=== PATIENT | female | born 1995 | race American Indian/Alaskan Native ===

== ENCOUNTER 2019-01-19 04:24 | Emergency (ER) | payer SELFPAY ==
[2019-01-19 05:20] LABS: Basophils % (Auto) 0.4 % (0.0-1.8); Eosinophils # (Auto) 0.1 K/mm3 (0.0-0.4); Eosinophils % (Auto) 1.1 % (0.0-4.3); Hematocrit 41.2 % (30.3-42.9); Hemoglobin 13.6 gm/dl (10.1-14.3); Lymphocytes # (Auto) 2.2 K/mm3 (1.2-5.4); Lymphocytes % (Auto) 32.8 % (13.4-35.0); Mean Corpuscular HGB Conc 33 % (30-34); Mean Corpuscular Volume 95 fl (79-97); Monocytes # (Auto) 0.5 K/mm3 (0.0-0.8); Monocytes % (Auto) 7.6 % (0.0-7.3); Platelet Count 208 K/mm3 (140-440); Red Blood Count 4.34 M/mm3 (3.65-5.03)
[2019-01-19 05:30] LABS: Bilirubin,Urine NEG (Negative); Blood,Urine MOD (Negative); Color,Urine Yellow (Yellow); Mucus,Urine 2+ /HPF; Urobilinogen,Urine < 2.0 mg/dL (<2.0)
[2019-01-19] MEDS ORDERED: LIDOCAINE-MPF (1%) 10 MG/1 ML VIAL 5 ML INFILTRATI ONE (05:59)
[2019-01-19] MEDS ORDERED: AZITHROMYCIN 1 GM ORAL PWDR PACKET PO ONE (05:59)
[2019-01-19 06:10] LABS: Alanine Aminotransferase 9 units/L (7-56); Albumin 4.7 g/dL (3.9-5); BUN/Creatinine Ratio 14; Blood Urea Nitrogen 11 mg/dL (7-17); Calcium 9.3 mg/dL (8.4-10.2); Hemolysis Index 3
--- NOTE | 2019-01-19 06:18 | Emergency Department Report ---
ED Female HPI - General Chief complaint: Abdominal Pain Stated complaint: ABD AND VAG PAIN Time Seen by Provider: 01/19/19 05:48 Source: patient Mode of arrival: Ambulatory Limitations: No Limitations - History of Present Illness Initial comments: Patient is a 23-year-old female presents emergency room with complaints of suprapubic and vaginal pain began several days ago. She has associated vaginal irritation, dysuria, urinary frequency. She denies any vaginal discharge, nausea, vomiting, diarrhea, fever, lesions or blisters on the vagina. She states that she is sexually active and does not use protection. Denies any past medical history or allergies medications. She states that she is currently on her mental cycle. - Related Data Previous Rx's Medication Instructions Recorded Last Taken Type Ibuprofen [Motrin 600 MG tab] 600 mg PO Q8H PRN #14 tablet 01/19/19 Unknown Rx Ondansetron [Zofran Odt] 4 mg PO Q8HR PRN #10 tab.rapdis 01/19/19 Unknown Rx cephALEXin [Keflex] 500 mg PO BID 7 Days #14 cap 01/19/19 Unknown Rx metroNIDAZOLE [Flagyl] 500 mg PO BID 7 Days #14 tab 01/19/19 Unknown Rx traMADol [Ultram 50 MG tab] 50 mg PO Q6HR PRN #7 tablet 01/19/19 Unknown Rx Allergies Allergy/AdvReac Type Severity Reaction Status Date / Time No Known Allergies Allergy Verified 01/19/19 04:28 ED Review of Systems ROS: Stated complaint: ABD AND VAG PAIN Other details as noted in HPI Comment: All other systems reviewed and negative ED Past Medical Hx - Past Medical History Previous Medical History?: No - Surgical History Past Surgical History?: No - Social History Smoking Status: Current Every Day Smoker Substance Use Type: Alcohol - Medications Home Medications: Home Medications Medication Instructions Recorded Confirmed Last Taken Type Ibuprofen [Motrin 600 MG tab] 600 mg PO Q8H PRN #14 tablet 01/19/19 Unknown Rx Ondansetron [Zofran Odt] 4 mg PO Q8HR PRN #10 tab.rapdis 01/19/19 Unknown Rx cephALEXin [Keflex] 500 mg PO BID 7 Days #14 cap 01/19/19 Unknown Rx metroNIDAZOLE [Flagyl] 500 mg PO BID 7 Days #14 tab 01/19/19 Unknown Rx traMADol [Ultram 50 MG tab] 50 mg PO Q6HR PRN #7 tablet 01/19/19 Unknown Rx ED Physical Exam - General Limitations: No Limitations General appearance: alert, in no apparent distress - Head Head exam: Present: atraumatic, normocephalic - Eye Eye exam: Present: normal appearance - ENT ENT exam: Present: mucous membranes moist - Respiratory Respiratory exam: Present: normal lung sounds bilaterally. Absent: respiratory distress, wheezes, rales, rhonchi, stridor, chest wall tenderness, accessory muscle use, decreased breath sounds, prolonged expiratory - Cardiovascular Cardiovascular Exam: Present: regular rate, normal rhythm, normal heart sounds. Absent: systolic murmur, diastolic murmur, rubs, gallop - GI/Abdominal GI/Abdominal exam: Present: soft, normal bowel sounds. Absent: distended, tenderness, guarding, rebound, rigid - External exam: Present: normal external exam. Absent: erythema, swelling, lesions, lacerations, ecchymosis Speculum exam: Present: vaginal bleeding (small amount of blood in the vaginal vault), other (record center specialist: damion, tech). Absent: vaginal discharge, cervical discharge, foreign body, tissue, laceration Bi-manual exam: Present: cervical motion tendernes. Absent: adnexal tenderness, adnexal mass - Neurological Exam Neurological exam: Present: alert, oriented X3 - Psychiatric Psychiatric exam: Present: normal affect, normal mood - Skin Skin exam: Present: warm, dry, intact ED Course Vital Signs 01/19/19 01/19/19 04:30 07:03 Temperature 97.4 F L 98.1 F Pulse Rate 61 72 Respiratory 18 16 Rate Blood Pressure 117/65 95/52 [Right] O2 Sat by Pulse 96 99 Oximetry ED Medical Decision Making - Lab Data Result diagrams: 01/19/19 04:42 01/19/19 04:42 - Medical Decision Making Patient is a 23-year-old female presents emergency room with complaints of suprapubic and vaginal pain began several days ago. She has associated vaginal irritation, dysuria, urinary frequency. She denies any vaginal discharge, nausea, vomiting, diarrhea, fever, lesions or blisters on the vagina. She states that she is sexually active and does not use protection. Denies any past medical history or allergies medications. She states that she is currently on her mental cycle. vitals are normal. no abd tenderness, no CVAT. on exam: small amount of bleeding in the vaginal vault, pt is currently on her menstrual cycle, pt does have (+) cervical motion tenderness. G/C swab sent. wet prep is negative. concern for pelvic inflammatory disease. pt given ceftriaxone and azithromycin. pt given prescription for flagyl, keflex, zofran, and pain medications. advised pt to please take medication as prescribed to completion. do not drink alcohol while taking medication. do not drive or operate heavy machinery while taking pain medication. Abstain from sexual intercourse for 10 days. please have partner tested and treated as well. Go to medical records in one week for results of your tests. please be seen [facility] in the next 3-5 days to have another pelvic examination. return to the emergency room for any new worsening symptoms. - Differential Diagnosis STD, UTI, vaginitis, PID, yeast, BV Critical care attestation.: If time is entered above; I have spent that time in minutes in the direct care of this critically ill patient, excluding procedure time. ED Disposition Clinical Impression: PID (acute pelvic inflammatory disease) Disposition: TO HOME OR SELFCARE Is pt being admited?: No Does the pt Need Aspirin: No Condition: Stable Instructions: Pelvic Inflammatory Disease (ED) Additional Instructions: Please take medication as prescribed to completion. do not drink alcohol while taking medication. do not drive or operate heavy machinery while taking pain medication. Abstain from sexual intercourse for 10 days. please have partner tested and treated as well. Go to medical records in one week for results of your tests. please be seen [facility] in the next 3-5 days to have another pelvic examination. return to the emergency room for any new worsening symptoms. Prescriptions: metroNIDAZOLE [Flagyl] 500 mg PO BID 7 Days #14 tab cephALEXin [Keflex] 500 mg PO BID 7 Days #14 cap Ibuprofen [Motrin 600 MG tab] 600 mg PO Q8H PRN #14 tablet PRN Reason: Pain traMADol [Ultram 50 MG tab] 50 mg PO Q6HR PRN #7 tablet PRN Reason: Pain , Severe (7-10) Ondansetron [Zofran Odt] 4 mg PO Q8HR PRN #10 tab.rapdis PRN Reason: Nausea And Vomiting Referrals: [facility] [Provider Group] - 3-5 Days [facility] [Provider Group] - 3-5 Days [facility] [Provider Group] - 3-5 Days Time of Disposition: 06:29 Print Language: MOROCCAN
[2019-01-19 07:04] VITALS: BP 95/52
== END 2019-01-19 07:03 | disposition home or self-care (01) ==
LOC: ED 04:24
DX: N73.9 Female pelvic inflammatory disease, unspecified (principal); F17.200 Nicotine dependence, unspecified, uncomplicated; Z79.1 Long term (current) use of non-steroidal anti-inflammatories (NSAID); Z79.899 Other long term (current) drug therapy
CPT/HCPCS: 36415; 80053; 81001; 84703; 85025; 87086; 87210; 87591; 96372; 99284; J0696

== ENCOUNTER 2019-03-04 11:17 | Emergency (ER) | payer SELFPAY ==
[2019-03-04 11:51] VITALS: BP 104/60
--- NOTE | 2019-03-04 11:53 | Event Note ---
ED Screening Note Date of service: 03/04/19 Time: 11:49 ED Screening Note: 23 y o female presents with pelvic contant pain x 3 days LMP: 02/13/19 positive n/v/chills This initial assessment/diagnostic orders/clinical plan/treatment(s) is/are subject to change based on patients health status, clinical progression and re- assessment by fellow clinical providers in the ED. Further treatment and workup at subsequent clinical providers discretion. Patient/guardian urged not to elope from the ED as their condition may be serious if not clinically assessed and managed. Initial orders include: ua,upt, labs pain meds, zofran CT vs U/S? ACC eval
[2019-03-04 12:13] LABS: Bacteria,Urine 1+ /HPF (Negative); Bilirubin,Urine NEG (Negative); Blood,Urine MOD (Negative); Color,Urine Yellow (Yellow); Mucus,Urine FEW /HPF; Urobilinogen,Urine < 2.0 mg/dL (<2.0)
[2019-03-04 12:22] LABS: HCG Qualitative,Urine Negative (Negative)
[2019-03-04] MEDS ORDERED: ACETAMINOPHEN 325 MG TAB PO ONE (12:24)
[2019-03-04 12:34] LABS: Basophils % (Auto) 0.2 % (0.0-1.8); Eosinophils % (Auto) 0.1 % (0.0-4.3); Hemoglobin 13.4 gm/dl (10.1-14.3); Lymphocytes # (Auto) 0.9 K/mm3 (1.2-5.4); Lymphocytes % (Auto) 5.2 % (13.4-35.0); Mean Corpuscular HGB Conc 34 % (30-34); Mean Corpuscular Volume 95 fl (79-97); Monocytes # (Auto) 1.4 K/mm3 (0.0-0.8); Monocytes % (Auto) 7.8 % (0.0-7.3); Platelet Count 156 K/mm3 (140-440); Red Blood Count 4.21 M/mm3 (3.65-5.03)
[2019-03-04 12:49] LABS: BUN/Creatinine Ratio 12; Blood Urea Nitrogen 7 mg/dL (7-17); Calcium 9.8 mg/dL (8.4-10.2); Hemolysis Index 16
== END 2019-03-04 13:56 | disposition left against medical advice (07) ==
LOC: ED 11:17
DX: R10.2 Pelvic and perineal pain (principal); Z53.21 Procedure and treatment not carried out due to patient leaving prior to being seen by health care provider
CPT/HCPCS: 36415; 80048; 81001; 81025; 85025; 87086